=== PATIENT | female | born 1955 | race Caucasian/White ===

== ENCOUNTER 2020-11-29 05:58 | Emergency (ER) | payer OTHER ==
[~2020-11-29] VITALS: Ht 152.4 cm; Wt 40.4 kg
[2020-11-29 06:48] LABS: HEMOGLOBIN 13.2 gm/dl (12.3-15.3); RED BLOOD COUNT 4.82 M/UL (4.00-5.10); WHITE BLOOD COUNT 8.5 K/UL (4.5-11.0)
[2020-11-29 07:22] LABS: BUN/CREATININE RATIO 20 (0-10)
[2020-11-29] MEDS ORDERED: CATAPRES 0.1MG0.1 MG PO (10:47)
== END 2020-11-29 10:58 | disposition home or self-care (01) ==
LOC: ER1 05:58
PROVIDERS: Student in an Organized Health Care Education/Training Program
DX: T78.3XXA Angioneurotic edema, initial encounter (principal); I10 Essential (primary) hypertension; I25.10 Atherosclerotic heart disease of native coronary artery without angina pectoris; F17.210 Nicotine dependence, cigarettes, uncomplicated; Z79.899 Other long term (current) drug therapy; X58.XXXA Exposure to other specified factors, initial encounter
CPT/HCPCS: 36430; 80053; 85025; 85610; 85730; 86850; 86900; 86901; 86927; 96374; 99283; J2405; P9017

== ENCOUNTER 2021-09-28 14:04 | Emergency (ER) | payer OTHER ==
[~2021-09-28 14:04] MED LIST: CATAPRES 0.1MG0.1 MG PO
[2021-09-28] MEDS ORDERED: CYCLOBENZAPRINE10 MG PO (14:52)
== END 2021-09-28 15:00 | disposition home or self-care (01) ==
LOC: ER1 14:04
DX: M25.511 Pain in right shoulder (principal); I10 Essential (primary) hypertension; F17.210 Nicotine dependence, cigarettes, uncomplicated; Z88.1 Allergy status to other antibiotic agents; Z88.8 Allergy status to other drugs, medicaments and biological substances; X50.9XXA Other and unspecified overexertion or strenuous movements or postures, initial encounter
CPT/HCPCS: 73030; 96372; 99283; J1885